=== PATIENT | female | born 1940 | race Caucasian/White ===

== ENCOUNTER → 2016-06-23 | Outpatient (CLI) | payer MEDICARE, BC ==
[~2016-06-23] VITALS: Ht 162.6 cm; Wt 82.8 kg
[~2016-06-23] MED LIST: ALEVE 220MG220 MG PO; ALEVE220 MG PO; ALLEGRA ODT30 MG PO; ASPIRIN 81M81 MG/TA2 PO; ASPIRIN E.C. 8181 MG PO; BIO-CEF500 MG PO; CALCIUM CARBONATE PO; CEFTIN 250250 MG/TAB PO; CEPHALEXIN500 M1 PO; CLARITIN 1010 MG/TAB PO; EPA FISH OIL1000 MG PO; EXCEDRIN BACK &1 TAB PO; FLONASE NASAL S16 GM NS; GLUCOPHAGE500 MG/TAB PO; GUAIFEN-PSE 6001 TER PO; LOPERAMIDE2 MG PO; MUCINEX DM 30 M1 TE1 PO; MULTIPLE VITAMI1 CAP PO; OMNICEF 300MG300 MG PO; PHENTERMINE15 MG PO; PRILOSEC 20MG20 MG PO; SYNTHROID0.05 MG/TA PO; TYLENOL 500MG500 MG PO; TYLENOL EXTRA500 M1 PO; VITAMIN D 1001000 IU PO; VITAMIN D32000 I1 PO; ZOCOR 10MG10 MG PO; ZYZAL PO; vitamin D PO
[2016-06-23 10:17] VITALS: BP 136/72; PULSE 90
[2016-06-23 10:45] VITALS: BP 136/72; PULSE 90
== END ==
LOC: LIGHT 10:10
DX: E78.4 Other hyperlipidemia (principal); R73.01 Impaired fasting glucose; E66.09 Other obesity due to excess calories; Z68.31 Body mass index [BMI] 31.0-31.9, adult; M15.8 Other polyosteoarthritis

== ENCOUNTER → 2016-07-28 | Outpatient (CLI) | payer MEDICARE, BC ==
[~2016-07-28] VITALS: Ht 162.6 cm; Wt 78.9 kg
[2016-07-28 09:29] VITALS: BP 132/80; PULSE 84
[2016-07-28 09:55] VITALS: BP 132/80; PULSE 84
== END ==
LOC: LIGHT 09:40
DX: E78.4 Other hyperlipidemia (principal); R73.01 Impaired fasting glucose; M15.8 Other polyosteoarthritis; E66.3 Overweight; Z68.29 Body mass index [BMI] 29.0-29.9, adult

== ENCOUNTER → 2016-09-22 | Outpatient (CLI) | payer MEDICARE, BC ==
[~2016-09-22] VITALS: Ht 162.6 cm; Wt 77.7 kg
[2016-09-22 10:21] VITALS: BP 135/70; PULSE 97
== END ==
LOC: LIGHT 09-08 14:43
DX: E78.4 Other hyperlipidemia (principal); R73.01 Impaired fasting glucose; M15.8 Other polyosteoarthritis; E66.3 Overweight; Z68.29 Body mass index [BMI] 29.0-29.9, adult

== ENCOUNTER → 2016-11-03 | Outpatient (CLI) | payer MEDICARE, BC ==
[~2016-11-03] VITALS: Ht 162.6 cm; Wt 78.9 kg
[2016-11-03 10:36] VITALS: BP 130/70; PULSE 76
== END ==
LOC: LIGHT 10:30
DX: E66.3 Overweight (principal); Z68.29 Body mass index [BMI] 29.0-29.9, adult

== ENCOUNTER → 2016-12-22 | Outpatient (CLI) | payer MEDICARE, BC ==
[~2016-12-22] VITALS: Ht 162.6 cm; Wt 78.2 kg
[2016-12-22 10:10] VITALS: BP 132/52; PULSE 89
== END ==
LOC: LIGHT 10:20
DX: E78.5 Hyperlipidemia, unspecified (principal); R73.01 Impaired fasting glucose; E66.3 Overweight; Z68.29 Body mass index [BMI] 29.0-29.9, adult; Z71.3 Dietary counseling and surveillance; M15.9 Polyosteoarthritis, unspecified

== ENCOUNTER → 2017-03-16 | Outpatient (CLI) | payer MEDICARE, BC ==
[~2017-03-16] VITALS: Ht 162.6 cm; Wt 72.8 kg
[2017-03-16 10:08] VITALS: BP 126/50; PULSE 84
== END ==
LOC: LIGHT 09:55
DX: E78.5 Hyperlipidemia, unspecified (principal); R73.01 Impaired fasting glucose; E66.3 Overweight; Z68.27 Body mass index [BMI] 27.0-27.9, adult; Z71.3 Dietary counseling and surveillance; M15.9 Polyosteoarthritis, unspecified

== ENCOUNTER → 2017-04-11 | Outpatient (CLI) | payer MEDICARE, BC ==
[~2017-04-11] MED LIST changes: +CARAFATE 1GM1 G PO; +FDGARD PO
== END ==
LOC: SUN.DIA 11:04
DX: E11.9 Type 2 diabetes mellitus without complications (principal); Z68.27 Body mass index [BMI] 27.0-27.9, adult; Z71.3 Dietary counseling and surveillance
CPT/HCPCS: G0108

== ENCOUNTER → 2017-04-12 | Outpatient (CLI) | payer MEDICARE, BC | LOC: SUN.DIA 08:23 | DX: E11.9 Type 2 diabetes mellitus without complications (principal); Z68.27 Body mass index [BMI] 27.0-27.9, adult; Z71.3 Dietary counseling and surveillance ==

== ENCOUNTER → 2017-04-20 | Outpatient (CLI) | payer MEDICARE, BC ==
[~2017-04-20] VITALS: Ht 162.6 cm; Wt 72.3 kg
[2017-04-20 11:55] VITALS: BP 116/72; PULSE 84
== END ==
LOC: LIGHT 10:27
DX: E78.5 Hyperlipidemia, unspecified (principal); R73.01 Impaired fasting glucose; E66.3 Overweight; Z68.27 Body mass index [BMI] 27.0-27.9, adult; Z71.3 Dietary counseling and surveillance; M15.9 Polyosteoarthritis, unspecified

== ENCOUNTER 2017-05-23 10:45 | Outpatient (RCR) | payer MEDICARE, BC | END 2017-05-24 09:16 | disposition home or self-care (01) | LOC: WSPT 10:45 | DX: M54.12 Radiculopathy, cervical region (principal) | CPT/HCPCS: G8978-GP; G8979-GP; G8980-GP ==

== ENCOUNTER → 2017-07-20 | Outpatient (CLI) | payer MEDICARE, BC ==
[~2017-07-20] VITALS: Ht 162.6 cm; Wt 72.1 kg
[~2017-07-20] MED LIST changes: +IMODIUM 2MG CAPS2 MG PO
[2017-07-20 10:18] VITALS: BP 130/64; PULSE 76
== END ==
LOC: LIGHT 08:47
DX: E78.5 Hyperlipidemia, unspecified (principal); R73.01 Impaired fasting glucose; E66.3 Overweight; Z68.27 Body mass index [BMI] 27.0-27.9, adult; Z71.3 Dietary counseling and surveillance; M15.9 Polyosteoarthritis, unspecified
CPT/HCPCS: G0463

== ENCOUNTER → 2017-07-31 | Outpatient (CLI) | payer MEDICARE, BC | LOC: SUN.DIA 09:00 | DX: E11.9 Type 2 diabetes mellitus without complications (principal); Z71.3 Dietary counseling and surveillance | CPT/HCPCS: G0109 ==

== ENCOUNTER → 2017-08-07 | Outpatient (CLI) | payer MEDICARE, BC | LOC: SUN.DIA 09:00 | DX: Z01.89 Encounter for other specified special examinations (principal) ==

== ENCOUNTER → 2017-08-08 | Outpatient (CLI) | payer MEDICARE, BC | LOC: SUN.DIA 09:32 | DX: E11.9 Type 2 diabetes mellitus without complications (principal); Z68.27 Body mass index [BMI] 27.0-27.9, adult; Z71.3 Dietary counseling and surveillance | CPT/HCPCS: G0108 ==

== ENCOUNTER → 2017-08-21 | Outpatient (CLI) | payer MEDICARE, BC | LOC: SUN.DIA 09:00 | DX: E11.9 Type 2 diabetes mellitus without complications (principal); Z71.3 Dietary counseling and surveillance | CPT/HCPCS: G0109 ==

== ENCOUNTER → 2018-06-21 | Outpatient (CLI) | payer MEDICARE, BC ==
[~2018-06-21] VITALS: Ht 162.6 cm; Wt 82.3 kg
[2018-06-21 10:20] VITALS: BP 138/84; PULSE 68
== END ==
LOC: LIGHT 01-11 11:52
DX: E03.9 Hypothyroidism, unspecified (principal); R73.01 Impaired fasting glucose; M15.9 Polyosteoarthritis, unspecified; E66.9 Obesity, unspecified; Z68.31 Body mass index [BMI] 31.0-31.9, adult; Z71.3 Dietary counseling and surveillance
CPT/HCPCS: G0463

== ENCOUNTER 2018-06-22 11:15 | Outpatient (RCR) | payer MEDICARE, BC | END 2018-06-22 13:38 | disposition home or self-care (01) | LOC: WSOT 11:15 | DX: Z47.89 Encounter for other orthopedic aftercare (principal) | CPT/HCPCS: G8987-GO; G8988-GO; G8989-GO ==

== ENCOUNTER → 2018-07-11 | Outpatient (CLI) | payer MEDICARE, BC | LOC: COL.RAD 07:35 | DX: M16.11 Unilateral primary osteoarthritis, right hip (principal) | CPT/HCPCS: J3301; Q9967 ==

== ENCOUNTER 2018-08-24 10:45 | Outpatient (RCR) | payer MEDICARE, BC | END 2018-09-10 15:49 | disposition home or self-care (01) | LOC: WSC 10:45 | DX: M47.816 Spondylosis without myelopathy or radiculopathy, lumbar region (principal); M48.061 Spinal stenosis, lumbar region without neurogenic claudication ==

== ENCOUNTER → 2018-08-30 | Outpatient (CLI) | payer MEDICARE, BC ==
[~2018-08-30] VITALS: Ht 162.6 cm; Wt 81.0 kg
[2018-08-30 10:55] VITALS: BP 156/86; PULSE 84
== END ==
LOC: LIGHT 07-26 11:55
DX: E78.5 Hyperlipidemia, unspecified (principal); R73.01 Impaired fasting glucose; M15.9 Polyosteoarthritis, unspecified; E66.9 Obesity, unspecified; Z68.30 Body mass index [BMI] 30.0-30.9, adult; Z71.3 Dietary counseling and surveillance
CPT/HCPCS: G0463

== ENCOUNTER → 2018-09-27 | Outpatient (CLI) | payer MEDICARE, BC ==
[~2018-09-27] VITALS: Ht 162.6 cm; Wt 80.7 kg
[2018-09-27 15:00] VITALS: BP 150/76; PULSE 96
== END ==
LOC: LIGHT 14:25
DX: E78.5 Hyperlipidemia, unspecified (principal); R73.01 Impaired fasting glucose; M15.9 Polyosteoarthritis, unspecified; E66.3 Overweight; Z68.30 Body mass index [BMI] 30.0-30.9, adult; Z71.3 Dietary counseling and surveillance
CPT/HCPCS: G0463

== ENCOUNTER → 2018-10-24 | Outpatient (CLI) | payer MEDICARE, BC | LOC: COL.RAD 10-18 14:00 | DX: M25.551 Pain in right hip (principal) | CPT/HCPCS: J3301; Q9967 ==

== ENCOUNTER → 2019-01-10 | Outpatient (CLI) | payer MEDICARE, BC ==
[~2019-01-10] VITALS: Ht 162.6 cm; Wt 80.7 kg
[2019-01-10 10:13] VITALS: BP 120/68; PULSE 68
== END ==
LOC: LIGHT 09:55
DX: E78.5 Hyperlipidemia, unspecified (principal); R73.01 Impaired fasting glucose; M15.9 Polyosteoarthritis, unspecified; E66.3 Overweight; Z68.30 Body mass index [BMI] 30.0-30.9, adult; Z71.3 Dietary counseling and surveillance
CPT/HCPCS: G0463

== ENCOUNTER → 2019-02-07 | Outpatient (CLI) | payer MEDICARE, BC ==
[~2019-02-07] VITALS: Ht 162.6 cm; Wt 80.7 kg
[2019-02-07 09:32] VITALS: BP 100/62; PULSE 78
== END ==
LOC: LIGHT 09:22
DX: E78.5 Hyperlipidemia, unspecified (principal); R73.01 Impaired fasting glucose; M15.9 Polyosteoarthritis, unspecified; E66.3 Overweight; Z68.30 Body mass index [BMI] 30.0-30.9, adult; Z71.3 Dietary counseling and surveillance
CPT/HCPCS: G0463

== ENCOUNTER → 2019-02-12 | Outpatient (CLI) | payer MEDICARE, BC | LOC: COL.RAD 10:09 | DX: M16.11 Unilateral primary osteoarthritis, right hip (principal) | CPT/HCPCS: J3301; Q9967 ==

== ENCOUNTER → 2019-03-14 | Outpatient (CLI) | payer MEDICARE, BC ==
[~2019-03-14] VITALS: Ht 162.6 cm; Wt 80.3 kg
[~2019-03-14] MED LIST changes: +ALLEGRA 180MG180 MG PO
[2019-03-14 10:30] VITALS: BP 140/74; PULSE 72
== END ==
LOC: LIGHT 10:22
DX: E78.5 Hyperlipidemia, unspecified (principal); R73.01 Impaired fasting glucose; M15.9 Polyosteoarthritis, unspecified; E66.3 Overweight; Z71.3 Dietary counseling and surveillance
CPT/HCPCS: G0463

== ENCOUNTER → 2019-04-25 | Outpatient (CLI) | payer MEDICARE, BC ==
[~2019-04-25] VITALS: Ht 160 cm; Wt 79.2 kg
[~2019-04-25] MED LIST changes: +NEURONTIN100 MG/CAP PO
[2019-04-25 10:16] VITALS: BP 134/70; PULSE 72
== END ==
LOC: LIGHT 09:54
DX: E78.5 Hyperlipidemia, unspecified (principal); R73.01 Impaired fasting glucose; M15.9 Polyosteoarthritis, unspecified; E66.3 Overweight; Z68.30 Body mass index [BMI] 30.0-30.9, adult; Z71.3 Dietary counseling and surveillance
CPT/HCPCS: G0463

== ENCOUNTER → 2020-09-30 | Outpatient (CLI) | payer MEDICARE, BC | LOC: COL.RAD 06:56 | DX: M54.31 Sciatica, right side (principal); M48.061 Spinal stenosis, lumbar region without neurogenic claudication; Z98.890 Other specified postprocedural states | CPT/HCPCS: A9585 ==

== ENCOUNTER → 2020-10-12 | Outpatient (CLI) | payer MEDICARE, BC | LOC: MHCPAIN 14:19 | DX: M47.817 Spondylosis without myelopathy or radiculopathy, lumbosacral region (principal); M53.3 Sacrococcygeal disorders, not elsewhere classified; M54.5 Low back pain; G89.29 Other chronic pain; M96.1 Postlaminectomy syndrome, not elsewhere classified | CPT/HCPCS: G0463 ==

== ENCOUNTER → 2020-10-15 | Outpatient (CLI) | payer MEDICARE, BC | LOC: MHCPAIN 10:58 | DX: M47.817 Spondylosis without myelopathy or radiculopathy, lumbosacral region (principal); M96.1 Postlaminectomy syndrome, not elsewhere classified; M54.16 Radiculopathy, lumbar region | CPT/HCPCS: J1100; Q9967 ==

== ENCOUNTER → 2020-11-03 | Outpatient (CLI) | payer MEDICARE, BC | LOC: MHCPAIN 10:32 | DX: M47.817 Spondylosis without myelopathy or radiculopathy, lumbosacral region (principal); M53.3 Sacrococcygeal disorders, not elsewhere classified; M54.5 Low back pain; M96.1 Postlaminectomy syndrome, not elsewhere classified | CPT/HCPCS: G0463 ==

== ENCOUNTER → 2020-11-09 | Outpatient (CLI) | payer MEDICARE, BC | LOC: MHCPAIN 11:57 | DX: M96.1 Postlaminectomy syndrome, not elsewhere classified (principal); M54.16 Radiculopathy, lumbar region | CPT/HCPCS: J1100; Q9967 ==

== ENCOUNTER → 2020-11-23 | Outpatient (CLI) | payer MEDICARE, BC | LOC: MHCPAIN 10:38 | DX: M47.817 Spondylosis without myelopathy or radiculopathy, lumbosacral region (principal); M96.1 Postlaminectomy syndrome, not elsewhere classified; M54.16 Radiculopathy, lumbar region; M53.3 Sacrococcygeal disorders, not elsewhere classified | CPT/HCPCS: G0463 ==

== ENCOUNTER → 2020-11-26 | Outpatient (CLI) | payer MEDICARE, BC | LOC: MHCPAIN 08:13 | DX: M47.817 Spondylosis without myelopathy or radiculopathy, lumbosacral region (principal); M96.1 Postlaminectomy syndrome, not elsewhere classified; M54.16 Radiculopathy, lumbar region | CPT/HCPCS: J1100; Q9967 ==

== ENCOUNTER → 2020-12-08 | Outpatient (CLI) | payer MEDICARE, BC | LOC: MHCPAIN 10:05 | DX: M47.816 Spondylosis without myelopathy or radiculopathy, lumbar region (principal); M96.1 Postlaminectomy syndrome, not elsewhere classified; M53.3 Sacrococcygeal disorders, not elsewhere classified; M54.16 Radiculopathy, lumbar region | CPT/HCPCS: G0463 ==